=== PATIENT | female | born 1955 | race Caucasian/White ===

== ENCOUNTER 2019-08-10 19:28 | Emergency (ER) | payer OTHER, MEDICAID ==
[~2019-08-10] VITALS: Ht 121.9 cm; Wt 63.5 kg
[2019-08-10 19:35] VITALS: BP 150/88
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
--- NOTE | 2019-08-10 19:47 | NUR ---
DR CLINE MADE AWARE OF PT BLOOD SUGAR [id number]
--- NOTE | 2019-08-10 20:53 | NUR ---
PATIENT DISCHARGED, BUT IS WAITING FOR TRANSPORTATION TO COME. JUNIOR DESIGNER CALLED FACILITY TO TRANSPORT PATIENT
[2019-08-10] MEDS: KETOROLAC 30 MG/ML VIAL IM ONE (21:01)
[2019-08-10 22:03] VITALS: BP 128/56
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
== END 2019-08-10 22:03 | disposition home or self-care (01) ==
LOC: MED 19:28
DX: S90.31XA Contusion of right foot, initial encounter (principal); I10 Essential (primary) hypertension; E11.9 Type 2 diabetes mellitus without complications; Z98.890 Other specified postprocedural states; Z88.5 Allergy status to narcotic agent; Z88.8 Allergy status to other drugs, medicaments and biological substances; X58.XXXA Exposure to other specified factors, initial encounter; Y93.89 Activity, other specified; Y92.89 Other specified places as the place of occurrence of the external cause; Y99.8 Other external cause status
CPT/HCPCS: 73630; 96372; 99283; J1885; Q0092